=== PATIENT | female | born 1985 | race Caucasian/White ===

== ENCOUNTER 2016-09-14 12:46 | Emergency (ER) | payer OTHER ==
[2016-09-14 13:06] VITALS: BP 111/73; PULSE 66; TEMP 97.6
--- NOTE | 2016-09-14 13:15 | ED ---
General Adult HPI - General Chief complaint: ENT Stated complaint: ENT, cough Time Seen by Provider: 09/14/16 13:08 Source: patient, RN notes reviewed Mode of arrival: ambulatory Limitations: no limitations - History of Present Illness Initial comments: This is a 31-year-old female who presents with dry cough, congestion and sinus pressure 2 days. Patient states she has had these symptoms several times this year and her nephew has been sick with similar symptoms. Patient denies any known fevers, sore throat or otalgia. Patient admits to some congestion and mild headache from the sinus pressure. Patient denies any productive cough. Patient denies any chance of being .Patient denies any recent shortness breath, chest pain, abdominal pain, nausea/vomiting/diarrhea, back pain, numbness, tingling, hematuria, or any other complaints. - Related Data Previous Rx's Medication Instructions Recorded Benzonatate [Tessalon Perles] 100 mg PO TID 7 Days 09/14/16 Fluticasone Nasal [place] [Flonase 1 - 2 spray EA NOSTRIL DAILY #1 09/14/16 Nasal [place]] bottle Allergies Allergy/AdvReac Type Severity Reaction Status Date / Time No Known Allergies Allergy Verified 09/14/16 13:06 Review of Systems ROS Statement: Those systems with pertinent positive or pertinent negative responses have been documented in the HPI. ROS Other: All systems not noted in ROS Statement are negative. Past Medical History Past Medical History: Cancer, Renal Disease Additional Past Medical History / Comment(s): cervical/ kidney biopsy showed lupus but blood work did not History of Any Multi-Drug Resistant Organisms: None Reported Past Surgical History: Orthopedic Surgery, Tubal Ligation Additional Past Surgical History / Comment(s): due to needing cancer surgery Past Psychological History: Depression Smoking Status: Current every day smoker Past Alcohol Use History: Rare Past Drug Use History: None Reported General Exam - General Exam Comments Initial Comments: General: The patient is awake and alert, in no distress, and does not appear acutely ill. Eye: Pupils are equal, round and reactive to light, extra-ocular movements are intact. No nystagmus. There is normal conjunctiva bilaterally. No signs of icterus. Ears: TMs pink and pearly with intact cone of light bilaterally. Normal external ear canals Nose: Nasal turbinates erythematous and edematous with mild discomfort to palpation of the frontal and maxillary sinuses. Mouth and throat: There are moist mucous membranes and no oral lesions. Neck: The neck is supple, there is no tenderness or JVD. Cardiovascular: There is a regular rate and rhythm. No murmur, rub or gallop is appreciated. Respiratory: Lungs are clear to auscultation, respirations are non-labored, breath sounds are equal. No wheezes, stridor, rales, or rhonchi. Musculoskeletal: Normal ROM, no tenderness. Strength 5/5. Sensation intact. Radial pulses equal bilaterally 2+. Neurological: A&O x 3. CN II-XII intact, There are no obvious motor or sensory deficits. Coordination appears grossly intact. Speech is normal. Skin: Skin is warm and dry and no rashes or lesions are noted. Psychiatric: Cooperative, appropriate mood & affect, normal judgment. Limitations: no limitations Course Vital Signs 09/14/16 02 13:03 13:17 Temperature 97.6 F Pulse Rate 66 Respiratory 18 16 Rate Blood Pressure 111/73 O2 Sat by Pulse 99 Oximetry Medical Decision Making - Medical Decision Making This is a 31-year-old female presents with sinus congestion 2 days. On physical exam patient is afebrile in the EC. Nasal turbinates erythematous and edematous with mild discomfort to palpation of the frontal and maxillary sinuses. Chest x-ray is done and reviewed: No acute process. Reported by Dr. Felipe. Discussed results with patient. I discussed that most cases of sinusitis or viral. Discussed supportive care with [id number] decongestants, Claritin and nasal rinses/nasal sprays. Patient will be given a prescription for Flonase and Tessalon Perles. I discussed return parameters. Discussed Tylenol and Motrin as needed for any pain and fever symptoms. I discussed the patient should follow-up with her primary care physician in one to 2 days or return to the EC for any worsening symptoms or for any further concerns. Patient was receptive to this plan patient will be discharged home. Disposition Clinical Impression: Sinusitis Disposition: HOME SELF-CARE Condition: Good Instructions: Sinusitis (ED) Additional Instructions: Please use Claritin 10 mg, Sudafed OTC or other decongestant, saline nasal rinse such as netti-pot for symptoms. Please use a nasal spray 1-2 sprays in each nostril daily. Please use Tessalon Perles as prescribed. May use Tylenol and/or Motrin [id number] for fever and pain symptoms.Please use medication as discussed. Please follow-up with family doctor in the next 2 days of symptoms have not improved. Please return to emergency room if the symptoms increase or worsen or for any other concerns. Prescriptions: Benzonatate [Tessalon Perles] 100 mg PO TID 7 Days Fluticasone Nasal [place] [Flonase Nasal [place]] 1 - 2 spray EA NOSTRIL DAILY #1 bottle Referrals: Kd Linn MD [Primary Care Provider] - 1-2 days Time of Disposition: 13:47
[2016-09-14 13:18] VITALS: RESP 16
--- NOTE | 2016-09-14 13:47 | XR ---
EXAMINATION TYPE: XR chest 2V DATE OF EXAM: 09/14/2016 1:24 PM COMPARISON: 08/12/2014 TECHNIQUE: PA and lateral views submitted. HISTORY: Cough, sinus pressure FINDINGS: The lungs are clear and there is no pneumothorax, pleural effusion, or focal pneumonia. IMPRESSION: 1. No acute process.
== END 2016-09-14 13:55 | disposition home or self-care (01) ==
LOC: EC 12:46
DX: J32.9 Chronic sinusitis, unspecified (principal); F17.200 Nicotine dependence, unspecified, uncomplicated
CPT/HCPCS: 71020; 99283

== ENCOUNTER 2016-09-16 21:48 | Emergency (ER) | payer OTHER ==
[2016-09-16 22:03] VITALS: TEMP 97.2
[2016-09-16 23:55] VITALS: RESP 14
[2016-09-16] MEDS ORDERED: SODIUM CHLORIDE 0.9% 1,000 ML IV STA (23:58)
[2016-09-16] MEDS ORDERED: IPRATROPIUM-ALBUTEROL 3 ML NEB INHALATION STA (23:58)
[2016-09-16] MEDS ORDERED: methylPREDNISolone SOD SUCCI 125 MG/2 ML VIAL IV STA (23:59)
[2016-09-16] MEDS ORDERED: KETOROLAC 30 MG/ML 1 ML VIAL IVP STA (23:59)
--- NOTE | 2016-09-17 00:03 | ED ---
Chest Pain HPI - General Chief Complaint: Chest Pain Stated Complaint: Chest Pain Time Seen by Provider: 09/16/16 23:35 Source: patient, RN notes reviewed Mode of arrival: ambulatory Limitations: no limitations - History of Present Illness Initial Comments: This is a 31-year-old female who was seen here 2 days ago and diagnosed with upper respiratory infection placed on Flonase and cough medication is back today complaining of midsternal lower chest pain tight pressure-like that increases with movement and deep breathing. She does have a nonproductive cough she denies any fevers chills or sweats she is a smoker but has no history of bronchitis but she has been exposed bronchitis no history of asthma or COPD. No history of heart disease she states she's not getting any better from her medications. MD Complaint: chest pain, other - Related Data Previous Rx's Medication Instructions Recorded Benzonatate [Tessalon Perles] 100 mg PO TID 7 Days 09/14/16 Fluticasone Nasal [place] [Flonase 1 - 2 spray EA NOSTRIL DAILY #1 09/14/16 Nasal [place]] bottle Albuterol Inhaler [Ventolin Hfa 2 puff INHALATION Q6HR PRN #1 09/17/16 Inhaler] inhaler predniSONE 20 mg PO BID #10 tab 09/17/16 Allergies Allergy/AdvReac Type Severity Reaction Status Date / Time No Known Allergies Allergy Verified 09/16/16 22:03 Review of Systems ROS Statement: Those systems with pertinent positive or pertinent negative responses have been documented in the HPI. ROS Other: All systems not noted in ROS Statement are negative. EKG Findings - EKG Results: EKG: interpreted by DON WNL, sinus rhythm, normal axis, normal QRS, normal ST/ T, no acute changes (EKG shows normal sinus rhythm rate is 67 RI interval 140 QRS duration 84 QT/QTC of 384/405 this is normal. EKG.) Past Medical History Past Medical History: Cancer, Renal Disease Additional Past Medical History / Comment(s): cervical/ kidney biopsy showed lupus but blood work did not History of Any Multi-Drug Resistant Organisms: None Reported Past Surgical History: Orthopedic Surgery, Tubal Ligation Additional Past Surgical History / Comment(s): due to needing cancer surgery Past Psychological History: Depression Smoking Status: Current every day smoker Past Alcohol Use History: Rare Past Drug Use History: None Reported General Exam - General Exam Comments Initial Comments: This is a well-developed well-nourished awake alert oriented 3 female Limitations: no limitations General appearance: alert, in no apparent distress Head exam: Present: atraumatic, normocephalic, normal inspection Eye exam: Present: normal appearance, PERRL, EOMI. Absent: scleral icterus, conjunctival injection, periorbital swelling ENT exam: Present: normal exam, mucous membranes moist Neck exam: Present: normal inspection. Absent: tenderness, meningismus, lymphadenopathy Respiratory exam: Present: wheezes, chest wall tenderness (Tenderness over the xiphoid and lower midsternal costal sternal margin.), decreased breath sounds. Absent: respiratory distress, rales, rhonchi, stridor Cardiovascular Exam: Present: regular rate, normal rhythm, normal heart sounds. Absent: systolic murmur, diastolic murmur, rubs, gallop, clicks GI/Abdominal exam: Present: soft, normal bowel sounds. Absent: distended, tenderness, guarding, rebound, rigid Extremities exam: Present: normal inspection, full ROM, normal capillary refill. Absent: tenderness, pedal edema, joint swelling, calf tenderness Back exam: Present: normal inspection Neurological exam: Present: alert, oriented X3, CN II-XII intact Psychiatric exam: Present: normal affect, normal mood Skin exam: Present: warm, dry, intact, normal color. Absent: rash Course Vital Signs 09/16/16 09/16/16 09/17/16 22:01 23:55 00:28 Temperature 97.2 F L Pulse Rate 72 65 86 Respiratory 20 14 Rate Blood Pressure 126/71 O2 Sat by Pulse 98 96 Oximetry Chest Pain MDM - MDM Review the x-ray shows no acute findings. Patient is feeling much improved after the treatment. The presentation consistent with chest wall pain and bronchospasm. We did discuss smoking cessation for about 3.1 minutes. She is trying to cut back. She'll be discharged on appropriate medication Disposition Clinical Impression: Chest wall syndrome, Costalchondritis, Acute bronchospasm, Smoking Disposition: HOME SELF-CARE Condition: Good Instructions: Costochondritis (ED), Chest Wall Pain (ED), Bronchospasm (ED), How to Stop Smoking (ED) Prescriptions: Albuterol Inhaler [Ventolin Hfa Inhaler] 2 puff INHALATION Q6HR PRN #1 inhaler PRN Reason: Dyspnea predniSONE 20 mg PO BID #10 tab
[2016-09-17 00:04] LABS: Basophils # (A) 0.1 k/uL (0-0.2); Basophils % (A) 1 %; CH 32.6; CHCM 34.2; Eosinophils # (A) 0.4 k/uL (0-0.7); Eosinophils % (A) 3 %; HCT 41.7 % (34.0-46.0); HDW 2.31; Luc # (Auto) 0.31; Luc % (Auto) 3; Lymphocytes # (A) 2.2 k/uL (1.0-4.8); Lymphocytes % (A) 18 %; MCH 32.1 pg (25.0-35.0); MCHC 33.5 g/dL (31.0-37.0); MCV 95.7 fL (80.0-100.0); Monocytes # (A) 0.6 k/uL (0-1.0); Monocytes % (A) 5 %; Neutrophils # (A) 8.5 k/uL (1.3-7.7); Neutrophils % (A) 71 %; RBC 4.36 m/uL (3.80-5.40); RDW 11.9 % (11.5-15.5); WBC 12.1 k/uL (3.8-10.6)
[2016-09-17 00:15] LABS: ALT 32 U/L (9-52); AST 53 U/L (14-36); Alkaline Phosphatase 66 U/L (38-126); Anion Gap 15 mmol/L; Blood Urea Nitrogen 12 mg/dL (7-17); Calcium 9.7 mg/dL (8.4-10.2); Carbon Dioxide 22 mmol/L (22-30); Chloride 104 mmol/L (98-107); Glucose 93 mg/dL (74-99); Magnesium 1.9 mg/dL (1.6-2.3); Non-African American GFR(MDRD) >60 (>60 ml/min/1.73 sqM); Potassium 3.6 mmol/L (3.5-5.1); Sodium 141 mmol/L (137-145); Total Protein 7.9 g/dL (6.3-8.2)
[2016-09-17 00:18] LABS: Creatine Kinase 126 U/L (30-135)
[2016-09-17 00:31] LABS: Creatine Kinase MB 0.4 ng/mL (0.0-2.4); Troponin I <0.012 ng/mL (0.000-0.034)
[2016-09-17 01:25] VITALS: BP 120/70; PULSE 62
--- NOTE | 2016-09-17 01:44 | XR ---
EXAMINATION TYPE: XR chest 2V DATE OF EXAM: 09/17/2016 12:59 AM COMPARISON: 09/14/2016 HISTORY: Chest pain TECHNIQUE: Frontal and lateral views of the chest are obtained. FINDINGS: There is no focal air space opacity, pleural effusion, or pneumothorax seen. The cardiac silhouette size is within normal limits. Chronic lung changes are suggested. The osseous structures are intact. IMPRESSION: No acute cardiopulmonary process. No significant change.
== END 2016-09-17 01:24 | disposition home or self-care (01) ==
LOC: EC 21:48
DX: J98.01 Acute bronchospasm (principal); M94.0 Chondrocostal junction syndrome [Tietze]; F17.200 Nicotine dependence, unspecified, uncomplicated; Z79.899 Other long term (current) drug therapy; Z79.51 Long term (current) use of inhaled steroids
CPT/HCPCS: 99285; 96374; 96375; 96361; 94640; 36415; 93005; 80053; 82550; 82553; 83735; 84484; 85025; 71020; J2930; J1885

== ENCOUNTER → 2018-03-04 | Outpatient (CLI) | payer OTHER ==
--- NOTE | 2018-03-04 16:51 | US ---
EXAMINATION TYPE: US pelvic complete DATE OF EXAM: 03/04/2018 COMPARISON: NONE CLINICAL HISTORY: N92.0 menorrhagia,N85.2 bulky uterus. TECHNIQUE: Transabdominal (TA). Date of LMP: 02/21/18 EXAM MEASUREMENTS: Uterus: 7.7 x 3.8 x 5.4 cm Endometrial Stripe: 0.5 cm Right Ovary: 3.2 x 2.8 x 2.4 cm Left Ovary: 2.6 x 1.4 x 2.6 cm 1. Uterus: Anteverted wnl 2. Endometrium: wnl 3. Right Ovary: dominant follicle noted, wnl 4. Left Ovary: wnl 5. Bilateral Adnexa: wnl 6. Posterior cul-de-sac: wnl IMPRESSION: Normal transabdominal pelvic sonogram.
== END | disposition home or self-care (01) ==
LOC: RADUSWWP 16:22
PROVIDERS: ATTEND Family Medicine
DX: N92.0 Excessive and frequent menstruation with regular cycle (principal); Z88.8 Allergy status to other drugs, medicaments and biological substances
CPT/HCPCS: 76856

== ENCOUNTER 2018-05-19 18:29 | Emergency (ER) | payer OTHER ==
[2018-05-19 18:35] VITALS: BP 120/73; PULSE 63; RESP 20; TEMP 97.8
--- NOTE | 2018-05-19 18:58 | ED ---
Neck Injury/Pain HPI - General Chief Complaint: Neck Pain/Injury Stated Complaint: neck pain Time Seen by Provider: 05/19/18 18:38 Source: patient, RN notes reviewed Mode of arrival: ambulatory Limitations: no limitations - History of Present Illness Initial Comments: 32-year-old female presents emergency Department chief complaint right-sided neck pain. Patient states that extends from the right basilar skull also right shoulder mid back. Patient states it hurts with movement better at rest. Patient states stretches and ibuprofen have helped. She states she woke up the symptoms denies any trauma no fever no chills denies any chest pain shortness of breath no fever no chills. - Related Data Previous Rx's Medication Instructions Recorded Benzonatate [Tessalon Perles] 100 mg PO TID 7 Days capsule 09/14/16 Fluticasone Nasal [place] [Flonase 1 - 2 spray EA NOSTRIL DAILY #1 09/14/16 Nasal [place]] bottle Albuterol Inhaler [Ventolin Hfa 2 puff INHALATION Q6HR PRN #1 09/17/16 Inhaler] inhaler predniSONE 20 mg PO BID #10 tab 09/17/16 Cyclobenzaprine [Flexeril] 10 mg PO TID PRN #15 tab 05/19/18 Ibuprofen [Motrin] 600 mg PO Q8HR PRN #30 tab 05/19/18 Allergies Allergy/AdvReac Type Severity Reaction Status Date / Time No Known Allergies Allergy Verified 05/19/18 18:35 Review of Systems ROS Statement: Those systems with pertinent positive or pertinent negative responses have been documented in the HPI. ROS Other: All systems not noted in ROS Statement are negative. Past Medical History Past Medical History: Cancer, Renal Disease Additional Past Medical History / Comment(s): cervical/ kidney biopsy showed lupus but blood work did not History of Any Multi-Drug Resistant Organisms: None Reported Past Surgical History: Orthopedic Surgery, Tubal Ligation Additional Past Surgical History / Comment(s): due to needing cancer surgery Past Psychological History: Depression Smoking Status: Current every day smoker Past Alcohol Use History: Rare Past Drug Use History: None Reported General Exam Limitations: no limitations General appearance: alert, in no apparent distress Head exam: Present: atraumatic, normocephalic, normal inspection Eye exam: Present: normal appearance, PERRL, EOMI. Absent: scleral icterus, conjunctival injection, periorbital swelling ENT exam: Present: normal exam, normal oropharynx, mucous membranes moist, TM's normal bilaterally Neck exam: Present: normal inspection, tenderness (Tenderness the right trapezius region), full ROM. Absent: meningismus, lymphadenopathy Respiratory exam: Present: normal lung sounds bilaterally. Absent: respiratory distress, wheezes, rales, rhonchi, stridor Cardiovascular Exam: Present: regular rate, normal rhythm, normal heart sounds. Absent: systolic murmur, diastolic murmur, rubs, gallop, clicks Extremities exam: Present: other (Upper extremity strength equal bilaterally neurovascular intact) Course Vital Signs 05/19/18 18:34 Temperature 97.8 F Pulse Rate 63 Respiratory 20 Rate Blood Pressure 120/73 O2 Sat by Pulse 98 Oximetry Medical Decision Making - Medical Decision Making 32-year-old female presented for right-sided neck pain. Patient has classic right trapezius muscle spasm right trapezius muscle strain. Patient will be given Flexeril and ibuprofen. We discussed stretching and warm compresses. Disposition Clinical Impression: Strain of neck muscle, Trapezius muscle spasm Disposition: HOME SELF-CARE Condition: Stable Instructions: Cervical Strain (ED) Additional Instructions: Please return to the Emergency Department if symptoms worsen or any other concerns. Prescriptions: Cyclobenzaprine [Flexeril] 10 mg PO TID PRN #15 tab PRN Reason: Muscle Spasm Ibuprofen [Motrin] 600 mg PO Q8HR PRN #30 tab PRN Reason: Pain Is patient prescribed a controlled substance at d/c from ED?: No Referrals: Kd Linn MD [Primary Care Provider] - 1-2 days Time of Disposition: 18:58
== END 2018-05-19 19:00 | disposition home or self-care (01) ==
LOC: EC 18:29
DX: S16.1XXA Strain of muscle, fascia and tendon at neck level, initial encounter (principal); S46.811A Strain of other muscles, fascia and tendons at shoulder and upper arm level, right arm, initial encounter; F17.200 Nicotine dependence, unspecified, uncomplicated; X58.XXXA Exposure to other specified factors, initial encounter
CPT/HCPCS: 99283

== ENCOUNTER 2018-05-24 13:41 | Emergency (ER) | payer OTHER ==
[2018-05-24 14:10] VITALS: BP 131/69; PULSE 58; RESP 16; TEMP 97.4
--- NOTE | 2018-05-24 14:37 | ED ---
Neck Injury/Pain HPI - General Chief Complaint: Neck Pain/Injury Stated Complaint: neck pain Time Seen by Provider: 05/24/18 14:03 Source: patient, RN notes reviewed Mode of arrival: ambulatory Limitations: no limitations - History of Present Illness Initial Comments: This is a 32-year-old female who presents to the emergency department with chief complaint of neck pain for 9 days. Patient states she was evaluated in the emergency department a few days ago and was diagnosed with a muscle strain. She was started on Flexeril and ibuprofen. Patient states that the Flexeril is making her sick so she has not been taking it. She states that the neck pain started when she woke up 9 days ago. She describes the pain as throbbing and pulsating. Today the pain started to radiate up the right side of her head. She states that she knows this is not a migraine. She states the pain in her neck is not positional. She states that the pain has improved but is still present. Denies any fevers or chills, chest pain or shortness of breath, abdominal pain. She does state she had 2 episodes of vomiting earlier today. States that she has not taken any medication to help with the headache. - Related Data Previous Rx's Medication Instructions Recorded Benzonatate [Tessalon Perles] 100 mg PO TID 7 Days capsule 09/14/16 Fluticasone Nasal [place] [Flonase 1 - 2 spray EA NOSTRIL DAILY #1 09/14/16 Nasal [place]] bottle Albuterol Inhaler [Ventolin Hfa 2 puff INHALATION Q6HR PRN #1 09/17/16 Inhaler] inhaler predniSONE 20 mg PO BID #10 tab 09/17/16 Cyclobenzaprine [Flexeril] 10 mg PO TID PRN #15 tab 05/19/18 Ibuprofen [Motrin] 600 mg PO Q8HR PRN #30 tab 05/19/18 Allergies Allergy/AdvReac Type Severity Reaction Status Date / Time No Known Allergies Allergy Verified 05/19/18 18:35 Review of Systems ROS Statement: Those systems with pertinent positive or pertinent negative responses have been documented in the HPI. ROS Other: All systems not noted in ROS Statement are negative. Past Medical History Past Medical History: Cancer, Renal Disease Additional Past Medical History / Comment(s): cervical/ kidney biopsy showed lupus but blood work did not History of Any Multi-Drug Resistant Organisms: None Reported Past Surgical History: Orthopedic Surgery, Tubal Ligation Additional Past Surgical History / Comment(s): due to needing cancer surgery Past Psychological History: Anxiety, Depression Smoking Status: Current every day smoker Past Alcohol Use History: Rare Past Drug Use History: None Reported General Exam - General Exam Comments Initial Comments: General: Awake and alert, well-developed; in no apparent distress. HEENT: Head atraumatic, normocephalic. Pupils are equal, round and reactive to light. Extraocular movements intact. Oropharynx moist without erythema or exudate. Neck: Supple. Normal ROM. No vertebral bony point tenderness or tenderness on palpation of the neck musculature. Cardiovascular: Regular rate and rhythm. No murmurs, rubs or gallops. Chest symmetrical. Respiratory: Lungs clear to auscultation bilaterally. No wheezes, rales or rhonchi. Normal respiratory effort with no use of accessory muscles. Musculoskeletal: Normal ROM, no tenderness, strength 5/5 bilateral upper and lower extremities. Ambulating normally. Skin: [place], warm and dry without rashes or lesions. Neurological: Alert and oriented x3. CN II-XII grossly intact. Speech is fluent and answers are appropriate. No focal neuro deficits. Psychiatric: Normal mood and affect. No overt signs of depression or anxiety noted. Limitations: no limitations Course Vital Signs 05/24/18 14:04 Temperature 97.4 F L Pulse Rate 58 L Respiratory 16 Rate Blood Pressure 131/69 O2 Sat by Pulse 96 Oximetry Medical Decision Making - Medical Decision Making This is a 32-year-old female who presents to the emergency department with chief complaint of neck pain. Patient reports right-sided neck pain for the past 9 days. She was being treated for a muscle strain. Patient states that today he neck pain now radiates up the right side of her neck and is throbbing and pulsating. She has not taken any medications today to help the pain. There are no focal neuro deficits on examination. Vital signs are stable. Patient has normal range of motion of the neck and there is no tenderness on palpation. Patient does request a computed tomography scan of the brain and C- spine. This was obtained which revealed no abnormalities. Findings were discussed with patient who then requested laboratory studies. I educated patient that laboratory studies will not give any further information regarding the neck pain or headache. This would be unnecessary testing. I did discuss this with attending physician Dr. Alexis who was in agreement. Patient became angry and was very unhappy with this and demanded to be given her discharge paperwork. Patient is instructed to follow-up with her primary care provider. Patient is in no acute distress. - Radiology Data Radiology results: report reviewed CT brain and C-spine without contrast impression: No acute intracranial abnormality is seen. No acute fracture or malalignment of the cervical spine. Disposition Clinical Impression: Headache Disposition: HOME SELF-CARE Condition: Good Instructions: Tension Headache (ED), General Headache (ED) Additional Instructions: Please follow up with primary care provider within 1-2 days. Return to emergency department if symptoms should worsen or any concerns arise. Is patient prescribed a controlled substance at d/c from ED?: No Referrals: Kd Linn MD [Primary Care Provider] - 1-2 days Time of Disposition: 15:12
--- NOTE | 2018-05-24 14:53 | CT ---
EXAMINATION TYPE: CT brain tiesha wo con DATE OF EXAM: 05/24/2018 COMPARISON: 03/15/2011 HISTORY: 32-year-old female Headache and neck pain. CT DLP: 868.8 mGycm Automated exposure control for dose reduction was used. Technique: Examination of the head was done in axial plane without intravenous contrast. Coronal and sagittal reconstructions performed. CT of the cervical spine was obtained in axial plane without intravenous injection of contrast mater ial. Coronal and sagittal reformatted images were obtained from the axial views for evaluation of f ractures, spinal alignment and canal. FINDINGS: Head: There is no evidence of acute intracranial hemorrhage, acute ischemic changes, mass, mass-effect, or extra-axial fluid collection. There is no effacement of cerebral sulci or basal subarachnoid cister ns. There is no hydrocephalus. There is no midline shift. Bah-white matter distinction is preserv ed. Paranasal sinuses and mastoid air cells are well pneumatized. Orbits and globes are intact. No calvar ial fracture. Cervical spine: Reversal of the normal cervical lordosis. The alignment of the cervical spine is normal on coronal an d reformatted images. There is no cranial vertebral abnormality. Fracture of the cervical spine is no t seen. There is no evidence of focal disk herniation that assessment of the spinal canal from C7 and below is limited due to artifact from the patient's shoulders. Sagittal and coronal reformatted images confirm above findings. COMBINED IMPRESSION: 1. No acute intracranial abnormality seen. 2. No acute fracture or malalignment of the cervical spine.
== END 2018-05-24 15:15 | disposition home or self-care (01) ==
LOC: EC 13:41
DX: R51 Headache (principal); M54.2 Cervicalgia; F17.200 Nicotine dependence, unspecified, uncomplicated
CPT/HCPCS: 70450; 72125; 99284

== ENCOUNTER → 2018-06-02 | Outpatient (CLI) | payer OTHER ==
[2018-06-02 13:33] LABS: Basophils # (A) 0.1 k/uL (0-0.2); Basophils % (A) 1 %; Eosinophils # (A) 0.4 k/uL (0-0.7); Eosinophils % (A) 5 %; HGB 12.9 gm/dL (11.4-16.0); Lymphocytes # (A) 2.3 k/uL (1.0-4.8); Lymphocytes % (A) 32 %; MCH 31.6 pg (25.0-35.0); MCHC 32.2 g/dL (31.0-37.0); MCV 98.2 fL (80.0-100.0); Monocytes # (A) 0.3 k/uL (0-1.0); Monocytes % (A) 4 %; Neutrophils % (A) 56 %; Platelet Count 196 k/uL (150-450); RBC 4.07 m/uL (3.80-5.40); RDW 11.7 % (11.5-15.5); WBC 7.1 k/uL (3.8-10.6)
[2018-06-02 13:45] LABS: Anion Gap 6 mmol/L; Blood Urea Nitrogen 10 mg/dL (7-17); Calcium 9.2 mg/dL (8.4-10.2); Carbon Dioxide 27 mmol/L (22-30); Chloride 105 mmol/L (98-107); Glucose 89 mg/dL (74-99); Potassium 4.6 mmol/L (3.5-5.1); Sodium 138 mmol/L (137-145)
== END ==
LOC: LABPAT 12:16
PROVIDERS: ATTEND Obstetrics & Gynecology
DX: Z01.818 Encounter for other preprocedural examination (principal)
CPT/HCPCS: 36415; 80048; 85025

== ENCOUNTER 2018-06-09 05:58 | Day surgery (SDC) | payer OTHER ==
[2018-06-03 14:58] VITALS: BMI 23.9
--- NOTE | 2018-06-07 17:18 | P.HPOB ---
History of Present Illness H&P Date: 06/07/18 Chief Complaint: Menorrhagia Stacey is a 32-year-old female with heavy vaginal bleeding. Bleeding is characterized as very heavy with significant pain and cramping. She also notes that is becoming more irregular and has worsened over the last year and a half. She relates that she has plum size clots and she can often go through a tampon every 10-20 minutes doing her worst bleeding. She is unable to function at work and often has to leave work or stay home. Options were discussed with patient including conservative measures like oral contraceptives or D&C with NovaSure but she relates that she is dubious as to whether not these will work for her as she is seeing people to fully gotten about a year of relief from these. Risks/benefits/alternatives to a robotic-assisted laparoscopic hysterectomy reviewed with the patient in detail and all questions were answered for her prior to proceeding to the operating room. Risks did include but were not limited to bleeding and infection, damage to the nerves/vessels/ bladder/bowel/ureters uterine potentially . She and I did have a long discussion on the possibility of doing a NovaSure procedure, however with her significant dysmenorrhea it is most likely that she will have potentially worsening of the symptoms and rather than take that risk we'll proceed with a hysterectomy. She is scheduled for a robotic-assisted laps up hysterectomy possible STEPHIE and possible BSO. Past Medical History Past Medical History: Cancer, Musculoskeletal Disorder, Renal Disease, Skin Disorder Additional Past Medical History / Comment(s): HX KIDNEY PROB, cervical/ kidney biopsy REVEALED LUPUS. CERVICAL CA 2008. DISLOCATED LT KNEE X2. MINOR PSORIASIS OCC. PAINFUL MENSES, LARGE CLOTS. History of Any Multi-Drug Resistant Organisms: None Reported Past Surgical History: Orthopedic Surgery, Tubal Ligation Additional Past Surgical History / Comment(s): FINGER REATTACHED RT HAND CHILD. D&C, due to needing cancer surgery; HAD CONE BIOPSY. COLONOSCOPY, EGD. Past Anesthesia/Blood Transfusion Reactions: No Reported Reaction Smoking Status: Current every day smoker - Past Family History Mother Family Medical History: No Reported History Medications and Allergies Home Medications Medication Instructions Recorded Confirmed Type Ibuprofen [Motrin] 200 - 600 mg PO Q8HR PRN 06/03/18 06/03/18 History Allergies Allergy/AdvReac Type Severity Reaction Status Date / Time bupropion [From Wellbutrin] AdvReac Hallucinati Verified 06/03/18 14:32 ons escitalopram [From Lexapro] AdvReac Hallucinati Verified 06/03/18 14:32 ons paroxetine [From Paxil] AdvReac Hallucinati Verified 06/03/18 14:32 ons sertraline [From Zoloft] AdvReac Hallucinati Verified 06/03/18 14:32 ons Exam Osteopathic Statement: *. No significant issues noted on an osteopathic structural exam other than those noted in the History and Physical/Consult. - OBG Physical Exam Breast: both: normal (no masses) Abdomen: bowel sounds normal, no diffuse tenderness, no bruit present, no guarding noted, no hepatomegaly, no splenomegaly, no mass Vulva: both: normal Vagina: normal moisture, no discharge Cervix: no lesion, no discharge Uterus: normal size, normal contour Adnexa: both: normal Anus/Rectum: normal perianal skin, no rectal mass, no hemorrhoids, heme negative
[~2018-06-09 05:58] MED LIST: DEXAMETHASONE SOD PHOSPHATE 10 MG/ML 1 ML VIAL IV ONE; HYDROmorphone 0.5 MG/0.5 ML SYRINGE IVP PRN; MIDAZOLAM 2 MG/2 ML VIAL IV PRN; ONDANSETRON 4 MG/2 ML VIAL IVP ONE; SCOPOLAMINE 1.5MG/72HR PATCH TRANSDERM ONE; ceFAZolin IN SWFI 2 GM/20 ML SYRINGE IVP ONE
[2018-06-09] MEDS: LIDOCAINE 1% 20 ML VIAL (10MG/ML) FOR IV START INTRADERMA PRN ×2 (06:42→06:51)
[2018-06-09] MEDS: LACTATED RINGERS 1,000 ML IV SCH ×4 (06:42→10:48)
[2018-06-09] MEDS ORDERED: BUPIVACAINE (PF) 0.25% 30 ML VIAL SQ ONE (07:26)
[2018-06-09] MEDS ORDERED: NEOSTIGMINE 1 MG/ML 10 ML VIAL ONE (07:43)
[2018-06-09] MEDS ORDERED: MIDAZOLAM 2 MG/2 ML VIAL ONE (07:43)
[2018-06-09] MEDS ORDERED: HYDROmorphone (PF) 1 MG/ML ONE (07:43)
[2018-06-09] MEDS ORDERED: fentaNYL (PF) 50 MCG/ML 2 ML AMP ONE (07:43)
[2018-06-09] MEDS ORDERED: PROPOFOL 10 MG/ML 20 ML VIAL IV ONE (07:43)
[2018-06-09] MEDS ORDERED: LIDOCAINE 1% INJ 10MG/ML (20 ML MDV) ONE (07:43)
[2018-06-09] MEDS ORDERED: GLYCOPYRROLATE 0.2 MG/ML 2 ML VIAL ONE (07:43)
[2018-06-09] MEDS ORDERED: ROCURONIUM BROMIDE 10 MG/ML 10 ML VIAL IV ONE (07:43)
[2018-06-09] MEDS ORDERED: KETOROLAC 30 MG/ML 1 ML VIAL ONE (07:43)
[2018-06-09] MEDS ORDERED: KETOROLAC 30 MG/ML 1 ML VIAL IVP PRN (09:03)
[2018-06-09] MEDS ORDERED: ONDANSETRON 4 MG/2 ML VIAL IVP PRN (09:03)
[2018-06-09] MEDS ORDERED: SIMETHICONE 80 MG CHEWABLE PO PRN (09:03)
[2018-06-09] MEDS ORDERED: Acetaminophen-Codeine 300-30mg TAB PO PRN (09:03)
--- NOTE | 2018-06-09 09:10 | P.OP ---
Date of Procedure: 06/09/18 Preoperative Diagnosis: Menorrhagia and pelvic pain Postoperative Diagnosis: Same with left hydrosalpinx Procedure(s) Performed: Robotic-assisted laparoscopic hysterectomy with essentially bilateral salpingectomy Anesthesia: EMBER Surgeon: Melo Rivera Child Support Investigator #1: Alysia Lozoya Estimated Blood Loss (ml): 20 IV fluids (ml): 500 Urine output (ml): 100 Pathology: other (Uterus cervix and fallopian tubes) Condition: stable Disposition: floor Operative Findings: Left hydrosalpinx Description of Procedure: Patient was taken to the operating suite where a general anesthetic was found be adequate. She was prepped and draped in normal sterile fashion and placed in dorsal lithotomy position. Initially a weighted speculum was inserted into the vagina and the anterior lip of the cervix was identified and grasped with a single-tooth tenaculum. Cervix was then dilated and sounded to 8 cm. Cynthia manipulator was then inserted without difficulty with stitches placed at 3 and 9. 3 cm cup size was noted. Parada cath was then placed and the remainder of incidents removed from the vagina. Gloves were then changed and attention was turned to abdominal portion procedure where 2 mL of quarter percent Marcaine was injected periumbilically. Through this injected anesthetic a 5 mm skin incision was made and through this incision under direct visualization with an optical trocar and sleeve the camera was inserted. Once peritoneal placement was assured gas was left fully slick abdomen and patient was placed in 25 Trendelenburg. Once this was accomplished 2 lateral ports were placed just inferior to the umbilicus 10 cm lateral to the umbilicus on both the right and left sides these were 8 mm skin incisions. Through these incisions robotic ports were placed. Once these were placed a fourth port and sleeve was inserted through a 1 cm incision between the left lateral and the medial port. Medial port was exchanged for a robotic camera port and the robot was brought in and docked. Once fully docked a Metzenbaums placed in the one arm and a Maryland grasper in the 2 arm and at this point I broke scrub and went to the console. Uterus was then elevated and observations pelvis were noted. Initially the uterus was tipped to the right-hand side and the left fallopian tube and hydrosalpinx were elevated and using Maryland to cauterize the tissue and scissor to cut it the hydrosalpinx was dissected across the mesosalpinx. Cauterization and cutting of the utero-ovarian ligament was then done followed by cauterization and cutting of the round ligament. Once this was accomplished anterior posterior leafs of the broad ligament were skeletonized and dissected laterally. Left sided vasculature was then cauterized. Uterus was then tipped intrauterine posterior fashion and undermining the bladder was done. Metzenbaum scissor undermining the tissue and scissor was used to incise across face of the uterus to create a bladder flap. Once this was fully developed similar dissection was performed to the right-hand side to free up this side and cauterization of vascular during the right side was done. Once this was accomplished retroversion of the uterus was done and the uterus was pushed in Parada, then anterior colpotomy was made. Anterior colpotomy was initially followed counterclockwise to approximately 9:00 once this was accomplished while cheating head when necessary to maintain excellent hemostasis we switched and went clockwise all the way around from approximately 2:00 to 9:00 to fully separate the uterus and cervix from the vagina. Uterus was then brought into the vagina to maintain pneumoperitoneum. Pedicles were verified for hemostasis. Once hemostasis was verified pelvis was irrigated. Once this was accomplished incidents were exchanged for a make suture cut and a cardia grasper and the vaginal cuff was closed with 20V lock suture in a running fashion. Once this was accomplished pelvis was again irrigated no bleeding is noted from any of the pedicles therefore incidents removed and gas was allowed to expel from the abdomen. 5 deep breaths were provided during this process. Dr. Lozoya and close the incisions with 4-0 Vicryl subcuticularly and the remaining 8 mL of quarter percent Marcaine was injected around these incisions. At this point I did do a cystoscopy and excellent flow was noted from both ureteral jets. All incidents were then removed. Sponge, lap, needle counts were all correct 2. Patient was then taken to the recovery room in stable and satisfactory condition.
[2018-06-09 11:44] VITALS: RESP 18
[2018-06-09] MEDS: Acetaminophen-Codeine 300-30mg TAB PO PRN (12:37)
[2018-06-09] MEDS: SENNOSIDES-DOCUSATE SODIUM 1 EACH TAB PO SCH (23:15)
[2018-06-10 00:03] VITALS: BP 116/77; PULSE 63; TEMP 98.2
[2018-06-10 07:34] LABS: Basophils % (A) 0 %; Eosinophils # (A) 0.1 k/uL (0-0.7); Eosinophils % (A) 1 %; HGB 11.5 gm/dL (11.4-16.0); Lymphocytes # (A) 2.4 k/uL (1.0-4.8); Lymphocytes % (A) 21 %; MCH 31.6 pg (25.0-35.0); MCHC 32.8 g/dL (31.0-37.0); MCV 96.4 fL (80.0-100.0); Mean Platelet Volume 8.6; Monocytes # (A) 0.5 k/uL (0-1.0); Monocytes % (A) 4 %; Neutrophils % (A) 72 %; Platelet Count 140 k/uL (150-450); RBC 3.63 m/uL (3.80-5.40); RDW 11.9 % (11.5-15.5); WBC 11.1 k/uL (3.8-10.6)
[2018-06-10] MEDS: SENNOSIDES-DOCUSATE SODIUM 1 EACH TAB PO SCH (08:29)
[2018-06-10] MEDS: Acetaminophen-Codeine 300-30mg TAB PO PRN (08:30)
--- NOTE | 2018-06-10 08:50 | P.DS ---
Providers Expected date of discharge: 06/10/18 Attending physician: Melo Rivera Primary care physician: Kd Waltershven [facility] Course: Patient is doing very well post op day 1. She is ambulating, voiding and she is tolerating her diet. She is passed flatus. We'll plan discharged home today. Vital signs are stable and afebrile. Heart regular, lungs clear, extremities are without pain. Abdomen is soft positive bowel sounds are noted and her incisions are clean dry and intact. Prescription for Motrin and Freedom has been sent to the pharmacy. Assessment postop day 1. Plan discharged home follow up with me in 10 days. Discharge instructions were thoroughly reviewed and all questions were answered for her prior to her discharge. Patient Condition at Discharge: Good Plan - Discharge Summary Discharge Rx Participant: Yes New Discharge Prescriptions: New HYDROcodone/APAP 5-325MG [Freedom 5-325] 1 tab PO Q4HR PRN #30 tab PRN Reason: Pain Ibuprofen [Motrin] 600 mg PO Q6HR PRN #30 tab PRN Reason: Pain No Action Ibuprofen [Motrin] 200 - 600 mg PO Q8HR PRN PRN Reason: Pain Discharge Medication List Ibuprofen [Motrin] 200 - 600 mg PO Q8HR PRN 06/03/18 [History] HYDROcodone/APAP 5-325MG [Freedom 5-325] 1 tab PO Q4HR PRN #30 tab 06/10/18 [Rx] Ibuprofen [Motrin] 600 mg PO Q6HR PRN #30 tab 06/10/18 [Rx] Follow up Appointment(s)/Referral(s): Melo Rivera DO [Doctor of Osteopathic Medicine] - 10 Days Activity/Diet/Wound Care/Special Instructions: Pelvic rest, no heavy lifting, limit stairs and driving. If any high temperatures, heavy bleeding or severe pain call my office Discharge Disposition: HOME SELF-CARE
== END 2018-06-10 18:30 | disposition home or self-care (01) ==
LOC: OR 05:58 → 4FBP 09:07 → OR 06-10 18:30
PROVIDERS: ATTEND Obstetrics & Gynecology
DX: N70.11 Chronic salpingitis (principal); N72 Inflammatory disease of cervix uteri; N94.6 Dysmenorrhea, unspecified; N92.1 Excessive and frequent menstruation with irregular cycle; M32.9 Systemic lupus erythematosus, unspecified; L40.9 Psoriasis, unspecified; Z98.51 Tubal ligation status; F17.200 Nicotine dependence, unspecified, uncomplicated; Z85.41 Personal history of malignant neoplasm of cervix uteri; Z88.8 Allergy status to other drugs, medicaments and biological substances
CPT/HCPCS: 81025; 86900; 86901; 85025; 86850; 88307; 58571; J2250; J1100; J2710; J2405; J2001; J3010; J1885; J1170; J2704; J0690

== ENCOUNTER 2021-05-30 17:35 | Emergency (ER) | payer OTHER ==
[2021-05-30 17:44] VITALS: RESP 18
[2021-05-30] MEDS ORDERED: diphenhydrAMINE 50 MG CAP PO STA (18:02)
[2021-05-30] MEDS ORDERED: FAMOTIDINE 20 MG TAB PO STA (18:02)
[2021-05-30] MEDS ORDERED: predniSONE 50 MG TAB PO STA (18:03)
--- NOTE | 2021-05-30 18:05 | ED ---
General Adult HPI - General Chief complaint: Allergic Reaction Stated complaint: Allergic reaction Time Seen by Provider: 05/30/21 17:55 Source: patient, family, RN notes reviewed Mode of arrival: ambulatory Limitations: no limitations - History of Present Illness Initial comments: Patient is a pleasant 35-year-old female presenting to the emergency department following a bee sting. Incident occurred just 20 minutes prior to arrival. Patient states she felt anxious and short of breath and vomited. Patient states this has resolved and she feels better now. Patient states she may have some questionable minimal difficulty breathing still. Patient does have some swelling and redness to her right clavicular region. No history of similar problems previously. There is a family history of problems with bee stings however. No swelling of the lips or tongue or throat. - Related Data Home Medications Medication Instructions Recorded Confirmed diphenhydrAMINE [Benadryl] 25 mg PO ONCE PRN 05/30/21 05/30/21 Previous Rx's Medication Instructions Recorded predniSONE [Deltasone] 20 mg PO BID #10 tab 05/30/21 Allergies Allergy/AdvReac Type Severity Reaction Status Date / Time bupropion [From Wellbutrin] AdvReac Hallucinati Verified 05/30/21 18:32 ons escitalopram [From Lexapro] AdvReac Hallucinati Verified 05/30/21 18:32 ons paroxetine [From Paxil] AdvReac Hallucinati Verified 05/30/21 18:32 ons sertraline [From Zoloft] AdvReac Hallucinati Verified 05/30/21 18:32 ons Review of Systems ROS Statement: Those systems with pertinent positive or pertinent negative responses have been documented in the HPI. ROS Other: All systems not noted in ROS Statement are negative. Constitutional: Denies: fever Eyes: Denies: eye pain ENT: Denies: ear pain Respiratory: Reports: as per HPI Cardiovascular: Denies: chest pain Endocrine: Denies: fatigue Gastrointestinal: Denies: abdominal pain Genitourinary: Denies: dysuria Musculoskeletal: Denies: back pain Skin: Reports: as per HPI Neurological: Denies: weakness Past Medical History Past Medical History: Cancer, Musculoskeletal Disorder, Renal Disease, Skin Disorder Additional Past Medical History / Comment(s): HX KIDNEY PROB, cervical/ kidney biopsy REVEALED LUPUS. CERVICAL CA 2007. DISLOCATED LT KNEE X2. MINOR PSORIASIS OCC. PAINFUL MENSES, LARGE CLOTS. History of Any Multi-Drug Resistant Organisms: None Reported Past Surgical History: Orthopedic Surgery, Tubal Ligation Additional Past Surgical History / Comment(s): FINGER REATTACHED RT HAND CHILD. D&C, due to needing cancer surgery; HAD CONE BIOPSY. COLONOSCOPY, EGD. Past Anesthesia/Blood Transfusion Reactions: No Reported Reaction Past Psychological History: Anxiety, Depression Smoking Status: Current every day smoker Past Alcohol Use History: Rare Past Drug Use History: Marijuana - Past Family History Mother Family Medical History: No Reported History General Exam Limitations: no limitations General appearance: alert, in no apparent distress Head exam: Present: normocephalic Eye exam: Present: normal appearance ENT exam: Present: normal oropharynx, other (No signs of angioedema of the lips or tongue or throat.) Neck exam: Present: normal inspection Respiratory exam: Present: normal lung sounds bilaterally. Absent: respiratory distress, wheezes Cardiovascular Exam: Present: regular rate, normal rhythm GI/Abdominal exam: Present: soft. Absent: tenderness Neurological exam: Present: alert Psychiatric exam: Present: normal affect, normal mood Skin exam: Present: normal color Course Vital Signs 05/30/21 17:39 Temperature 96.0 F L Pulse Rate 69 Respiratory 18 Rate Blood Pressure 94/54 O2 Sat by Pulse 93 L Oximetry Medical Decision Making - Medical Decision Making Patient reevaluated and resting comfortably in bed. Patient is essentially symptom-free for feeling drowsy. Patient updated Disposition Clinical Impression: Hymenoptera sting Disposition: HOME SELF-CARE Condition: Stable Instructions (If sedation given, give patient instructions): Insect Bite or Sting (ED) Additional Instructions: Prescriptions have been sent to pharmacy. Please do follow-up to primary care physician in the next couple days for recheck. Please continue [id number] Benadryl for the next 5 days. Return for difficulty breathing, swelling, weakness, worsening or changing symptoms or other concerns. Prescriptions: predniSONE [Deltasone] 20 mg PO BID #10 tab Is patient prescribed a controlled substance at d/c from ED?: No Referrals: Kd Linn MD [Primary Care Provider] - 1-2 days Time of Disposition: 18:59
[2021-05-30 19:19] VITALS: BP 93/54; PULSE 65; TEMP 97.2
== END 2021-05-30 19:08 | disposition home or self-care (01) ==
LOC: EC 17:35
DX: R11.10 Vomiting, unspecified (principal); R06.02 Shortness of breath; T63.461A Toxic effect of venom of wasps, accidental (unintentional), initial encounter; F17.200 Nicotine dependence, unspecified, uncomplicated; Z88.8 Allergy status to other drugs, medicaments and biological substances
CPT/HCPCS: 99283; J7512

== ENCOUNTER 2022-12-18 15:04 | Emergency (ER) | payer OTHER ==
[2022-12-18] MEDS ORDERED: HYDROmorphone 1 MG/ML 1 ML SYRINGE IM STA (15:24)
[2022-12-18] MEDS ORDERED: IBUPROFEN 600 MG TAB PO STA (15:32)
--- NOTE | 2022-12-18 15:38 | ED ---
Lower Extremity Injury HPI - General Chief Complaint: Extremity Injury, Lower Stated Complaint: dislocated L knee leg numbness Time Seen by Provider: 12/18/22 15:11 Source: patient, RN notes reviewed Mode of arrival: ambulatory Limitations: no limitations - History of Present Illness Initial Comments: This is a 37-year-old female who presents to the emergency department for left knee pain. States that she was stepping backwards out of her truck earlier today and she dislocated her knee. States that she frequently dislocates her knee and this feels the same. However, she is usually able to put it back in on her own, which was not the case this time. States that she had a severe knee dislocation years ago, and since then has had problems with recurrent dislocations. She was told by orthopedics that this would be the case. Since the injury today, she has not been able to put any pressure on the knee. Denies sustaining any other injuries. Denies any fevers, chills, sore throat, cough, dyspnea, chest pain, palpitations, abdominal pain, nausea, vomiting, diarrhea, back pain, or headaches. MD Complaint: knee injury Injury: Knee: Left - Related Data Home Medications Medication Instructions Recorded Confirmed No Known Home Medications 12/18/22 12/18/22 Allergies Allergy/AdvReac Type Severity Reaction Status Date / Time bupropion [From Wellbutrin] AdvReac Hallucinati Verified 12/18/22 15:40 ons escitalopram [From Lexapro] AdvReac Hallucinati Verified 12/18/22 15:40 ons paroxetine [From Paxil] AdvReac Hallucinati Verified 12/18/22 15:40 ons sertraline [From Zoloft] AdvReac Hallucinati Verified 12/18/22 15:40 ons Review of Systems ROS Statement: Those systems with pertinent positive or pertinent negative responses have been documented in the HPI. ROS Other: All systems not noted in ROS Statement are negative. Past Medical History Past Medical History: Cancer, Musculoskeletal Disorder, Renal Disease, Skin Disorder Additional Past Medical History / Comment(s): HX KIDNEY PROB, cervical/ kidney biopsy REVEALED LUPUS. CERVICAL CA 2008. DISLOCATED LT KNEE X3. MINOR PSORIASIS OCC. PAINFUL MENSES, LARGE CLOTS. History of Any Multi-Drug Resistant Organisms: None Reported Past Surgical History: Orthopedic Surgery, Tubal Ligation Additional Past Surgical History / Comment(s): FINGER REATTACHED RT HAND CHILD. D&C, due to needing cancer surgery; HAD CONE BIOPSY. COLONOSCOPY, EGD. Past Anesthesia/Blood Transfusion Reactions: No Reported Reaction Past Psychological History: Anxiety, Depression Smoking Status: Current every day smoker Past Alcohol Use History: Rare Past Drug Use History: Marijuana - Past Family History Mother Family Medical History: No Reported History General Exam Limitations: no limitations General appearance: alert, in distress Head exam: Present: atraumatic, normocephalic, normal inspection Respiratory exam: Present: normal lung sounds bilaterally. Absent: respiratory distress, wheezes, rales, rhonchi, stridor Cardiovascular Exam: Present: regular rate, normal rhythm, normal heart sounds. Absent: systolic murmur, diastolic murmur, rubs, gallop, clicks Extremities exam: Present: other (No overlying deformities, swelling, or dimpling over the left patella. Limited passive range of motion secondary to pain. 2+ DP and PT pulses and capillary refill <1 second. Negative anterior/posterior drawer test. Rosemarie's elicits pain. ) Neurological exam: Present: alert, oriented X3, CN II-XII intact Psychiatric exam: Present: normal affect, normal mood Skin exam: Present: warm, dry, intact, normal color. Absent: rash Course Vital Signs 12/18/22 12/18/22 15:06 17:01 Temperature 98.1 F 98.4 F Pulse Rate 77 73 Respiratory 18 16 Rate Blood Pressure 117/79 139/62 O2 Sat by Pulse 98 96 Oximetry Medical Decision Making - Medical Decision Making This is a 37-year-old female who presents to the emergency department for a left knee injury. Was pt. sent in by a medical professional or institution? @ -No Did you speak to anyone other than the patient for history? @ -No Did you review nursing and triage notes? @ -Yes, and I agree, it is accurate with regards to the patient's symptoms. Were old charts reviewed? @ -No Differential Diagnosis? @ -Differential Knee Pain/Injury: Fracture, dislocation, contusion, sprain, this is not meant to be an all- inclusive list. EKG interpreted by me (3pts min.)? @ -None X-rays interpreted by me (1pt min.)? @ -X-ray of the left knee obtained. My interpretation identifies no acute fractures or dislocations. CT interpreted by me (1pt min.)? @ -None U/S interpreted by me (1pt. min.)? @ -None What testing was considered but not performed? (CT, X-rays, U/S, labs)? Why? @ -None What meds were considered but not given? Why? @ -None Did you discuss the management of the patient with other professionals? @ -No Did you reconcile home meds? @ -No Was smoking cessation discussed for >3mins.? @ -No Was critical care preformed (if so, how long)? @ -No Were there social determinants of health that impacted care today? How? (Homelessness, low income, unemployed, alcoholism, drug addiction, transportation, low edu. Level, literacy, decrease access to med. care, intermediate, rehab)? @ -No Was there de-escalation of care discussed even if they declined? (Discuss DNR or withdrawal of care, Hospice)? @ -No What co-morbidities impacted this encounter? (DM, HTN, Smoking, COPD, CAD, Cancer, CVA, Hep., AIDS, mental health diagnosis, sleep apnea, morbid obesity)? @ -Musculoskeletal disorder Was patient admitted / discharged? @ -Discharged. X-ray of the left knee obtained revealing no evidence of any fractures or dislocations. Ibuprofen administered for pain relief. Patient became very belligerent with myself and the staff, stating that her knee was absolutely dislocated, as she was having difficulty moving it. The x-rays were reviewed by both myself, ED attending Dr. Ramires, and the radiologist. Neither of us saw any evidence of a dislocation on the x-ray. Patient also had no external evidence of a dislocation in terms of deformities or dimpling of the knee. There is also no evidence of vascular compromise. Patient was also shown the x- rays revealing no evidence of a dislocation. She continued to be very belligerent with myself and the nursing staff. Discussed that this can be related to internal derangement of the left knee, a meniscus, or ligamentous injury causing similar symptoms, however the patient did not believe that was the case. I did offer pain medications and a knee immobilizer. She declined pain medication other than ibuprofen. She was given a knee immobilizer and discharged home. Undiagnosed new problem with uncertain prognosis? @ -None Drug Therapy requiring intensive monitoring for toxicity (Heparin, Nitro, Insulin, Cardizem)? @ -None Were any procedures done? @ -None Diagnosis/symptom? @ -Left knee pain Acute, or Chronic, or Acute on Chronic? @ -Acute Uncomplicated (without systemic symptoms) or Complicated (systemic symptoms)? @ -Uncomplicated Side effects of treatment? @ -None Exacerbation, Progression, or Severe Exacerbation] @ -Not applicable Poses a threat to life or bodily function? @ -Yes, this is limiting her ability to ambulate. Return precautions reviewed in depth, the patient is instructed to return to the emergency department with any new, worsening, or concerning symptoms. Patient verbalized understanding. This case was discussed in detail with the attending ED physician, Dr. Ramires. Presentation, findings, and treatment plan discussed in detail as well. - Radiology Data Radiology results: report reviewed, image reviewed Disposition Clinical Impression: Left knee pain Disposition: HOME SELF-CARE Instructions (If sedation given, give patient instructions): Knee Pain (ED) Additional Instructions: Return to the emergency department with any new, worsening, or concerning symptoms. Follow up with your primary care provider in 1-2 days. Is patient prescribed a controlled substance at d/c from ED?: No Referrals: Kd Linn MD [Primary Care Provider] - 1-2 days
--- NOTE | 2022-12-18 16:01 | XR ---
EXAMINATION TYPE: XR knee complete LT DATE OF EXAM: 12/18/2022 CLINICAL HISTORY: Injury with pain TECHNIQUE: Three views of the left knee are obtained. COMPARISON: Prior left knee x-ray November 2014 FINDINGS: There is no acute fracture/dislocation evident in left knee. The tri-compartment joint sp aces remain within normal limits. The overlying soft tissue appears unremarkable. IMPRESSION: There is no acute fracture or dislocation in the left knee. No significant change from p rior.
[2022-12-18] MEDS ORDERED: ACET/COD 300 MG/30 MG STARTER PACK 6 TAB BTL PO STA (16:41)
[2022-12-18] MEDS ORDERED: IBUPROFEN 600 MG STARTER PACK 4 TAB BTL PO STA (16:41)
[2022-12-18 17:03] VITALS: BP 139/62; PULSE 73; RESP 16; TEMP 98.4
== END 2022-12-18 17:03 | disposition home or self-care (01) ==
LOC: EC 15:04
DX: M25.562 Pain in left knee (principal); F17.200 Nicotine dependence, unspecified, uncomplicated; F12.90 Cannabis use, unspecified, uncomplicated; Z88.8 Allergy status to other drugs, medicaments and biological substances
CPT/HCPCS: 99283

== ENCOUNTER → 2023-01-18 | Outpatient (CLI) | payer OTHER ==
--- NOTE | 2023-01-20 05:29 | MR ---
EXAMINATION TYPE: MR knee LT wo con DATE OF EXAM: 01/18/2023 COMPARISON: Left knee x-ray December 18, 2022 HISTORY: Left knee pain and swelling for 10 years after dislocation injury TECHNIQUE: Multiplanar, multisequence images of the knee is performed without IV contrast. FINDINGS: MEDIAL MENISCUS: Anterior and posterior horns are intact without tear. LATERAL MENISCUS: Anterior and posterior horns are intact without tear. CRUCIATE LIGAMENTS: The posterior cruciate ligament is intact and unremarkable. Complete tear of the anterior cruciate ligament is noted. COLLATERAL LIGAMENTS: The medial collateral ligament and lateral collateral ligament complex are inta ct and unremarkable. EXTENSOR MECHANISM: Visualized quadriceps and patellar tendons are intact. EFFUSION: Large size suprapatellar joint effusion. POPLITEAL CYST: No popliteal/steel cyst. TRICOMPARTMENT SPACES: Tricompartment joint spaces are preserved. No significant spurring is seen. CARTILAGE: Tricompartmental articular cartilage is maintained. BONE MARROW SIGNAL: No focal abnormal marrow signal is appreciated. OTHER: No additional significant abnormality is appreciated. IMPRESSION: 1. Complete ACL tear. 2. Large suprapatellar joint effusion.
== END | disposition home or self-care (01) ==
LOC: RADMRIMAIN 20:45
PROVIDERS: ATTEND Family Medicine
DX: S83.512A Sprain of anterior cruciate ligament of left knee, initial encounter (principal); S83.105A Unspecified dislocation of left knee, initial encounter; M25.462 Effusion, left knee

== ENCOUNTER → 2023-01-29 | Outpatient (CLI) | payer OTHER ==
[2023-01-29 16:36] LABS: BUN/Creat Ratio 15.44 Ratio (12.00-20.00); Blood Urea Nitrogen 13.9 mg/dL (9.0-27.0); Calcium 9.5 mg/dL (8.7-10.3); Carbon Dioxide 25.1 mmol/L (21.6-31.8); Chloride 104 mmol/L (96-109); Glucose 81 mg/dL (70-110); Sodium 138 mmol/L (135-145)
[2023-01-29 17:34] LABS: Basophils # (A) 0.07 X 10*3/uL (0.00-0.10); Basophils % (A) 0.8 %; Eosinophils # (A) 0 X 10*3/uL (0.04-0.35); Eosinophils % (A) 0 %; HCT 40.7 % (37.2-46.3); HGB 13.5 d/dL (12.0-15.0); Lymphocytes # (A) 2.77 X 10*3/uL (0.90-5.00); Lymphocytes % (A) 33.3 %; MCH 32.4 pg (27.0-32.0); MCHC 33.2 d/dL (32.0-37.0); MCV 97.6 FL (80.0-97.0); Mean Platelet Volume 11.8 FL (9.5-12.2); Monocytes # (A) 0.58 X 10*3/uL (0.20-1.00); NRBC Per 100 WBC 0 X 10*3/uL (0.00-0.01); Neutrophils # (A) 4.85 X 10*3/uL (1.80-7.70); Neutrophils % (A) 58.4 %; Platelet Count 187 X 10*3/uL (140-440); RBC 4.17 X 10*6/uL (4.10-5.20); RDW 11.9 % (11.5-14.5); WBC 8.31 X 10*3/uL (4.50-10.00)
== END | disposition home or self-care (01) ==
LOC: LABPAT 10:35
PROVIDERS: ATTEND Orthopaedic Surgery
DX: Z01.812 Encounter for preprocedural laboratory examination (principal); M23.92 Unspecified internal derangement of left knee
CPT/HCPCS: 80048; 85025

== ENCOUNTER → 2023-07-23 | Outpatient (CLI) | payer OTHER ==
--- NOTE | 2023-07-23 14:38 | P.GSHP ---
History of Present Illness H&P Date: 07/23/23 Chief Complaint: breast pain Karen is a 37 year old whtie female seen in consultation for Dr. Linn regarding bilateral breast pain. The pain is the greatest in right breast and has bilateral nipple itching. She has bilateral nipple piercings. The pain is aching when she sneezes or coughs she feels pain behind the breast radiating to her back. The patient does not feel any new lumps masses or nodules of concern in either breast. There is no spontaneous nipple discharge. The patient has a history of cervical cancer Bilateral breast ultrasound was performed on : Right breast: 2 o'clock position 4 x 4 x 2 mm oval hypoechoic area 10:00 area 4 x 4 mm similar lesion Left breast: 7:00 lesion which is 5.5-2 mm possible cyst with debris's Other solid or cystic lesions identified impression most likely benign bilaterally at 3 repeat breast ultrasound in 3 months Caffeine: 7 cups/day nicotine: 1/4 PPD since a teenager chocolate: several times a month Family History: maternal grandmother: ovarian cancer maternal great aunt : breast cancer maternal uncle: bone cancer Hormonal History: menarche: 12 1tubal preA1; Breast fed: yes, age at first : 16 partial hysterectomy Social History: nicotine: 1.4 PPD alcohol: Once or twice a year Drugs: Marijuana daily - Constitutional Constitutional: Denies chills, Denies fever - EENT Eyes: denies blurred vision, denies pain Ears: deny: decreased hearing, tinnitus Ears, nose, mouth and throat: Denies headache, Denies sore throat - Breasts Breasts: bilateral: as per HPI - Cardiovascular Comment: COPD Cardiovascular: Reports chest pain, Reports shortness of breath - Respiratory Respiratory: Reports cough - Gastrointestinal Gastrointestinal: Denies abdominal pain, Denies diarrhea, Denies nausea, Denies vomiting - Genitourinary (Female) Genitourinary: Denies dysuria, Denies hematuria - Menstruation Menstruation: Reports post hysterectomy - Musculoskeletal Musculoskeletal: Reports myalgias - Integumentary Integumentary: Reports pruritus, Denies rash - Neurological Neurological: Reports weakness, Denies numbness - Psychiatric Psychiatric: Reports anxiety, Reports depression - Endocrine Endocrine: Reports fatigue, Reports weight change - Hematologic/Lymphatic Comment: none - Allergic/Immunologic Allergic/Immunologic: Reports as per HPI Past Medical History Past Medical History: Cancer, Musculoskeletal Disorder, Renal Disease, Skin Disorder Additional Past Medical History / Comment(s): cervical/ kidney biopsy REVEALED LUPUS. CERVICAL CA 2008. DISLOCATED LT KNEE X3. MINOR PSORIASIS OCC. History of Any Multi-Drug Resistant Organisms: None Reported Past Surgical History: Hysterectomy, Orthopedic Surgery, Tubal Ligation Additional Past Surgical History / Comment(s): FINGER REATTACHED RT HAND CHILD. D&C, due to needing cancer surgery; HAD CONE BIOPSY. COLONOSCOPY, EGD. Past Anesthesia/Blood Transfusion Reactions: No Reported Reaction Past Psychological History: Anxiety, Depression Additional Psychological History / Comment(s): UNABLE TO TOLERATE RX TX Smoking Status: Current every day smoker Past Alcohol Use History: Rare Additional Past Alcohol Use History / Comment(s): SMOKING ON/OFF SINCE AGE 12, 1/2-3/4 PPD, NOW DOWN TO 2-3 CIGARETTES DAILY. Past Drug Use History: Marijuana Additional Drug Use History / Comment(s): USES EVERY OTHER DAY-INSTRUCTED TO REFRAIN FROM USE FOR AT LEAST 24 HOURS PRIOR TO PROCEDURE - Past Family History Mother Family Medical History: No Reported History Medications and Allergies Home Medications Medication Instructions Recorded Confirmed Type Ibuprofen [Motrin] 400 mg PO Q6HR PRN 07/23/23 07/23/23 History Allergies Allergy/AdvReac Type Severity Reaction Status Date / Time bee venom protein (honey bee) Allergy Anaphylaxis Verified 07/23/23 14:17 bupropion [From Wellbutrin] AdvReac Hallucinati Verified 07/23/23 14:17 ons escitalopram [From Lexapro] AdvReac Hallucinati Verified 07/23/23 14:17 ons paroxetine [From Paxil] AdvReac Hallucinati Verified 07/23/23 14:17 ons sertraline [From Zoloft] AdvReac Hallucinati Verified 07/23/23 14:17 ons Surgical - Exam Vital Signs Temp Pulse Resp BP Pulse Ox 98.3 F 71 16 120/79 98 07/23/23 14:17 07/23/23 14:17 07/23/23 14:17 07/23/23 14:17 07/23/23 14:17 - General moderate distress - Eyes normal ocular movement - Neck trachea midline - Respiratory normal respiratory effort, clear to auscultation - Cardiovascular Heart Sounds: normal: S1, S2 - Abdomen Abdomen: soft, non tender, no guarding, no rigid, no rebound - Integumentary normal turgor - Neurologic no disoriented, no combative - Musculoskeletal normal gait - Psychiatric oriented to time, oriented to person, oriented to place, speech is normal, memory intact Breast Exam: BRA: 34C Inspection: Bilateral grade 1 ptosis, bilateral nipple piercing Palpation: Right breast: Fibrocystic breast changes, no discrete dominant masses or nodules of concern Right axilla: No adenopathy of concern Left breast: Multi-positional exam fibrocystic changes no dominant masses or nodules of concern Left axilla: No adenopathy of concern Results Ultrasound results reviewed from [id number] Assessment and Plan Assessment: Impression: Bilateral mastodynia greater on the right than on the left Ultrasound probable bilateral breast cysts Nicotine dependence Caffeine dependence Plan: Lifestyle modification Blood given of breast pain Bilateral ultrasound in 6 months with examination at that time At this time there is nothing which would warrant interventional biopsy and clinical examination or radiographically CC: Dr. Linn
[2023-07-23 14:40] VITALS: BP 120/79; PULSE 71; RESP 16; TEMP 98.3
== END ==
LOC: WWCWWP 14:02
PROVIDERS: ATTEND Surgery
DX: C80.1 Malignant (primary) neoplasm, unspecified (principal); N18.9 Chronic kidney disease, unspecified; L98.9 Disorder of the skin and subcutaneous tissue, unspecified; M62.9 Disorder of muscle, unspecified; F17.210 Nicotine dependence, cigarettes, uncomplicated; F12.90 Cannabis use, unspecified, uncomplicated; F15.229 Other stimulant dependence with intoxication, unspecified; Z91.030 Bee allergy status; Z88.8 Allergy status to other drugs, medicaments and biological substances; Z88.2 Allergy status to sulfonamides; Z85.41 Personal history of malignant neoplasm of cervix uteri; Z88.6 Allergy status to analgesic agent; Z88.5 Allergy status to narcotic agent

== ENCOUNTER → 2023-10-06 | Outpatient (CLI) | payer OTHER ==
[2023-10-07 04:46] LABS: Basophils # (A) 0.08 X 10*3/uL (0.00-0.10); Eosinophils # (A) 1.21 X 10*3/uL (0.04-0.35); Eosinophils % (A) 14.9 %; HCT 40.9 % (37.2-46.3); HGB 13.1 g/dL (12.0-15.0); Lymphocytes % (A) 33.3 %; MCH 32.1 pg (27.0-32.0); MCV 100.2 FL (80.0-97.0); Mean Platelet Volume 12.3 FL (9.5-12.2); Monocytes # (A) 0.59 X 10*3/uL (0.20-1.00); Monocytes % (A) 7.3 %; NRBC Per 100 WBC 0 X 10*3/uL (0.00-0.01); Neutrophils # (A) 3.51 X 10*3/uL (1.80-7.70); Neutrophils % (A) 43.3 %; Platelet Count 157 X 10*3/uL (140-440); RBC 4.08 X 10*6/uL (4.10-5.20); RDW 11.8 % (11.5-14.5); WBC 8.11 X 10*3/uL (4.50-10.00)
== END | disposition home or self-care (01) ==
LOC: LABPAT 14:37
PROVIDERS: ATTEND Orthopaedic Surgery Hand Surgery
DX: G56.01 Carpal tunnel syndrome, right upper limb (principal)
CPT/HCPCS: 85025

== ENCOUNTER 2023-10-13 11:19 | Day surgery (SDC) | payer OTHER ==
[2023-10-07 15:13] VITALS: BMI 21.8
--- NOTE | 2023-10-12 09:33 | P.HPOR ---
History of Present Illness H&P Date: 10/12/23 Subjective: This is a 38 year old female that presents today for follow up evaluation regarding a several year history of progressively worsening right and left hand paresthesias in the thumb, index, middle and ring fingers. The patient has tried night time bracing for 2 years with only a small amount of relief. She any inciting event or neck pain. Physical Examination: RUE: AIN/PIN/Radial/Ulnar/Median motor intact. Radial/Ulnar/Median SILT. 2+/4 Radial/Ulnar pulses palpated. 5/5 APB, 5/5 FDI. Negative Finkelsteins, negative CMC grind, positive Durkan's compression. LUE: AIN/PIN/Radial/Ulnar/Median motor intact. Radial/Ulnar/Median SILT. 2+/4 Radial/Ulnar pulses palpated. 5/5 APB, 5/5 FDI. Negative Finkelsteins, negative CMC grind, positive Durkan's compression. EMG/NCV: EMG/NCV performed in 2021 demonstrates mild bilateral carpal tunnel syndrome. Impression: 1.) Right carpal tunnel syndrome 2.) Left carpal tunnel syndrome Plan: Diagnosis and treatment options were discussed with the patient. The patient has failed conservative treatment and would like to pursue a right endoscopic vs open carpal tunnel release followed by a left endoscopic vs open carpal tunnel release 2 weeks later. Risks and benefits of surgery including bleeding, infection, damage to surrounding tissue, need for further surgery, possible need to convert to open procedure, residual numbness were discussed and the patient wished to go forward with surgery. I anticipate 6 weeks off of work total at her [employer] job. CC: Angela Hunter DO Orthopedic Hand/Upper Extremity Surgeon Past Medical History Past Medical History: Cancer, Musculoskeletal Disorder, Renal Disease, Skin Disorder Additional Past Medical History / Comment(s): cervical/ kidney biopsy REVEALED LUPUS. CERVICAL CA 2008. DISLOCATED LT KNEE X3. MINOR PSORIASIS OCC. History of Any Multi-Drug Resistant Organisms: None Reported Past Surgical History: Hysterectomy, Orthopedic Surgery, Tubal Ligation Additional Past Surgical History / Comment(s): FINGER REATTACHED RT HAND CHILD. D&C, due to needing cancer surgery; HAD CONE BIOPSY. COLONOSCOPY, EGD. Past Anesthesia/Blood Transfusion Reactions: No Reported Reaction Smoking Status: Current every day smoker - Past Family History Mother Family Medical History: No Reported History Medications and Allergies Home Medications Medication Instructions Recorded Confirmed Type Ibuprofen [Motrin] 400 mg PO Q6HR PRN 07/23/23 10/07/23 History Allergies Allergy/AdvReac Type Severity Reaction Status Date / Time bee venom protein (honey bee) Allergy Anaphylaxis Verified 10/07/23 14:17 bupropion [From Wellbutrin] AdvReac Hallucinati Verified 10/07/23 14:17 ons escitalopram [From Lexapro] AdvReac Hallucinati Verified 10/07/23 14:17 ons paroxetine [From Paxil] AdvReac Hallucinati Verified 10/07/23 14:17 ons sertraline [From Zoloft] AdvReac Hallucinati Verified 10/07/23 14:17 ons Physical Examination Osteopathic Statement: *. No significant issues noted on an osteopathic structural exam other than those noted in the History and Physical/Consult.
[~2023-10-13 11:19] MED LIST changes: -DEXAMETHASONE SOD PHOSPHATE 10 MG/ML 1 ML VIAL IV ONE; +LIDOCAINE 1% (10MG/ML) FOR IV START INTRADERMA PRN; -MIDAZOLAM 2 MG/2 ML VIAL IV PRN; -ONDANSETRON 4 MG/2 ML VIAL IVP ONE; +Pre Op ABX Message 1 EACH MISC MISCELLANE ONE; -SCOPOLAMINE 1.5MG/72HR PATCH TRANSDERM ONE; -ceFAZolin IN SWFI 2 GM/20 ML SYRINGE IVP ONE
[2023-10-13] MEDS: LACTATED RINGERS 1,000 ML IV SCH (11:39)
[2023-10-13 11:44] VITALS: TEMP 97.7
[2023-10-13] MEDS ORDERED: PROPOFOL 10 MG/ML 20 ML VIAL IV ONE (12:24)
[2023-10-13] MEDS ORDERED: MIDAZOLAM 2 MG/2 ML VIAL ONE (12:24)
[2023-10-13] MEDS ORDERED: fentaNYL (PF) 50 MCG/ML 2 ML AMP ONE (12:24)
[2023-10-13] MEDS: LIDOCAINE 2% INJ 20 MG/ML SQ ONE ×2 (12:25→12:33)
[2023-10-13] MEDS: BUPIVACAINE (PF) 0.5% 30 ML VIAL SQ ONE ×2 (12:25→12:33)
[2023-10-13 13:25] VITALS: BP 108/74; PULSE 60; RESP 16
--- NOTE | 2023-10-18 14:23 | P.OP ---
Date of Procedure: 10/13/23 Preoperative Diagnosis: Right carpal tunnel syndrome Postoperative Diagnosis: Right carpal tunnel syndrome Procedure(s) Performed: Right endoscopic carpal tunnel release Anesthesia: MAC Surgeon: Dionicio Hunter Administrative Program Specialist #1: Grady Bernstein Estimated Blood Loss (ml): 0 Pathology: none sent Condition: stable Disposition: PACU Description of Procedure: This is a 38 year old female who presents today for a right endoscopic carpal tunnel release after having failed conservative treatment in the past. Risks and benefits of surgery were discussed with the patient including bleeding, damage to surrounding tissue, infection, need to convert to open procedure, need for further surgery as well as risks of anesthesia including pulmonary embolism and even and the patient wished to proceed with surgical intervention. The patients was seen in the pre-operative area by myself. Consent and H&P were completed and updated. The correct extremity was marked in the pre-operative area by myself and all other questions were answered. Operative Narrative: The patient was brought to the operating room by the department of anesthesia. They remained on the portable stretcher and a rolling hand table was brought to the side of the operative extremity. Pre-operative time out was performed indicating the correct patient, procedure and laterality. All in the room agreed. The patient was then drifted off to sleep by the department of an esthesia. MAC anesthesia was utilized and a 50:50 mixture of 1% Lidocaine and 0.5% bupivacaine was injected into the subcutaneous tissues of the palmar skin, 8ccs total. A nonsterile tourniquet was then applied to the operative extremity and the right upper extremity was then prepped and draped in normal sterile fashion. The operative extremity was the exsanguinated with an esmarch bandage and the tourniquet was inflated to 250mmHg. 15 blade scalpel was utilized to make a transverse incision on the palmar skin just ulnar to the palmaris longus tendon at the level of the distal wrist crease. Ragnell retractor was then placed radially and blunt dissection was performed to reveal the distal forearm fascia. This was lifted with fine Felton pick ups and Littler tenotomy scissors were then used to open the forearm fascia transversely and a double skin hook was then placed. Hamate finder was placed into the carpal tunnel and then sequential sized dilators were inserted followed by the synovial elevator to separate the flexor tenosynovium from the undersurface of the transverse carpal ligament and a washboard texture was felt. The MicroAire endoscopic carpal tunnel release system gun was the then inserted into the carpal tunnel hugging the deep portion of the transverse carpal ligament in line with the base of the ring finger. Transverse fibers of the ligament were directly visualized. Pressure was applied on the palm to reveal the distal extent of the transverse carpal ligament. The blade was then deployed and the distal half of the transverse carpal ligament was released. The scope was then brought distal again and remaining transverse fibers were incised with the blade. The proximal half of the transverse carpal ligament was then divided and again the scope was advanced distal and remaining transverse fibers were incised with the blade. The radial and ulnar leaflets were directly visualized and mobile consistent with complete release. Tenotomy scissors were then ut ilized to release the remaining distal forearm fascia under direct visualization taking care to preserve the palmar cutaneous branch of the median nerve. Skin closure was performed with interrupted 4-0 Monocryl suture followed by steri strips. Sterile dressing was applied consisting 4x4s, Webril, and an brett bandage. Tourniquet was let down and the hand immediately was well perfused. The patient was then woken by the department of anesthesia and transferred to PACU in stable condition. Grady ALVA was present for the case in its entirety and assisted in major portions of the case and protection of vital neurovascular structures. Dionicio Hunter D.O. Orthopedic Hand/Upper Extremity Surgeon
== END 2023-10-13 13:40 | disposition home or self-care (01) ==
LOC: OR 11:19
PROVIDERS: ATTEND Orthopaedic Surgery Hand Surgery
DX: G56.03 Carpal tunnel syndrome, bilateral upper limbs (principal); J44.9 Chronic obstructive pulmonary disease, unspecified; F41.9 Anxiety disorder, unspecified; F32.A Depression, unspecified; F17.210 Nicotine dependence, cigarettes, uncomplicated; Z85.41 Personal history of malignant neoplasm of cervix uteri; Z88.8 Allergy status to other drugs, medicaments and biological substances; Z91.030 Bee allergy status; Z79.1 Long term (current) use of non-steroidal anti-inflammatories (NSAID); Z88.6 Allergy status to analgesic agent
CPT/HCPCS: 29848; J2001; J2250; J3010; J2704; J0665

== ENCOUNTER → 2023-10-27 | Day surgery (SDC) | payer OTHER ==
--- NOTE | 2023-10-26 12:50 | P.HPOR ---
History of Present Illness H&P Date: 10/26/23 Subjective: This is a 38 year old female that presents today for follow up evaluation regarding a several year history of progressively worsening right and left hand paresthesias in the thumb, index, middle and ring fingers. The patient has tried night time bracing for 2 years with only a small amount of relief. She any inciting event or neck pain. Physical Examination: RUE: AIN/PIN/Radial/Ulnar/Median motor intact. Radial/Ulnar/Median SILT. 2+/4 Radial/Ulnar pulses palpated. 5/5 APB, 5/5 FDI. Negative Finkelsteins, negative CMC grind, positive Durkan's compression. LUE: AIN/PIN/Radial/Ulnar/Median motor intact. Radial/Ulnar/Median SILT. 2+/4 Radial/Ulnar pulses palpated. 5/5 APB, 5/5 FDI. Negative Finkelsteins, negative CMC grind, positive Durkan's compression. EMG/NCV: EMG/NCV performed in 2021 demonstrates mild bilateral carpal tunnel syndrome. Impression: 1.) Right carpal tunnel syndrome 2.) Left carpal tunnel syndrome Plan: Diagnosis and treatment options were discussed with the patient. The patient has failed conservative treatment and would like to pursue a right endoscopic vs open carpal tunnel release followed by a left endoscopic vs open carpal tunnel release 2 weeks later. Risks and benefits of surgery including bleeding, infection, damage to surrounding tissue, need for further surgery, possible need to convert to open procedure, residual numbness were discussed and the patient wished to go forward with surgery. I anticipate 6 weeks off of work total at her [employer] job. CC: Angela Hunter DO Orthopedic Hand/Upper Extremity Surgeon Past Medical History Past Medical History: Cancer, COPD, Musculoskeletal Disorder, Renal Disease, Skin Disorder Additional Past Medical History / Comment(s): cervical/ kidney biopsy REVEALED LUPUS. CERVICAL CA 2008. DISLOCATED LT KNEE X3. MINOR PSORIASIS OCC. History of Any Multi-Drug Resistant Organisms: None Reported Past Surgical History: Hysterectomy, Orthopedic Surgery, Tubal Ligation Additional Past Surgical History / Comment(s): FINGER REATTACHED RT HAND CHILD. D&C, due to needing cancer surgery; HAD CONE BIOPSY. COLONOSCOPY, EGD. Rt CTR Past Anesthesia/Blood Transfusion Reactions: No Reported Reaction Smoking Status: Current every day smoker - Past Family History Mother Family Medical History: No Reported History Medications and Allergies Home Medications Medication Instructions Recorded Confirmed Type Ibuprofen [Motrin] 800 mg PO Q8H 10/22/23 10/22/23 History Allergies Allergy/AdvReac Type Severity Reaction Status Date / Time bee venom protein (honey bee) Allergy Anaphylaxis Verified 10/22/23 10:32 bupropion [From Wellbutrin] AdvReac Hallucinati Verified 10/22/23 10:32 ons escitalopram [From Lexapro] AdvReac Hallucinati Verified 10/22/23 10:32 ons paroxetine [From Paxil] AdvReac Hallucinati Verified 10/22/23 10:32 ons sertraline [From Zoloft] AdvReac Hallucinati Verified 10/22/23 10:32 ons Physical Examination Osteopathic Statement: *. No significant issues noted on an osteopathic structural exam other than those noted in the History and Physical/Consult.
[~2023-10-27] MED LIST changes: -HYDROmorphone 0.5 MG/0.5 ML SYRINGE IVP PRN; -LIDOCAINE 1% (10MG/ML) FOR IV START INTRADERMA PRN; +MIDAZOLAM 2 MG/2 ML VIAL ONE; +ONDANSETRON 4 MG/2 ML VIAL ONE; +PROPOFOL 10 MG/ML 20 ML VIAL IV ONE; +fentaNYL (PF) 50 MCG/ML 2 ML AMP ONE
[2023-10-27] MEDS: LACTATED RINGERS 1,000 ML IV ONE (07:44)
[2023-10-27] MEDS: LIDOCAINE 1% (10MG/ML) FOR IV START SQ ONE (07:44)
[2023-10-27] MEDS: DEXAMETHASONE SOD PHOSPHATE 4 MG/ML 1 ML VIAL IVP ONE (07:47)
[2023-10-27] MEDS: ONDANSETRON 4 MG/2 ML VIAL IVP ONE (07:47)
[2023-10-27 07:48] VITALS: TEMP 97.1
[2023-10-27] MEDS: BUPIVACAINE (PF) 0.5% 30 ML VIAL SQ ONE ×2 (07:57→08:06)
[2023-10-27] MEDS: LIDOCAINE 2% INJ 20 MG/ML SQ ONE ×2 (07:58→08:06)
--- NOTE | 2023-10-27 08:20 | P.OP ---
Date of Procedure: 10/27/23 Preoperative Diagnosis: Left carpal tunnel syndrome Postoperative Diagnosis: Left carpal tunnel syndrome Procedure(s) Performed: Left endoscopic carpal tunnel release Anesthesia: MAC Surgeon: Dionicio Hunter Estimated Blood Loss (ml): 0 Pathology: none sent Condition: stable Disposition: PACU Description of Procedure: This is a 38 year old female who presents today for a left endoscopic carpal tunnel release after having failed conservative treatment in the past. Risks and benefits of surgery were discussed with the patient including bleeding, damage to surrounding tissue, infection, need to convert to open procedure, need for further surgery as well as risks of anesthesia including pulmonary embolism and even and the patient wished to proceed with surgical intervention. The patients was seen in the pre-operative area by myself. Consent and H&P were completed and updated. The correct extremity was marked in the pre-operative area by myself and all other questions were answered. Operative Narrative: The patient was brought to the operating room by the department of anesthesia. They remained on the portable stretcher and a rolling hand table was brought to the side of the operative extremity. Pre-operative time out was performed indicating the correct patient, procedure and laterality. All in the room agreed. The patient was then drifted off to sleep by the department of anesthesia. MAC anesthesia was utilized and a 50:50 mixture of 1% Lidocaine and 0.5% bupivacaine was injected into the subcutaneous tissues of the palmar skin, 8ccs total. A nonsterile tourniquet was then applied to the operative extremity and the left upper extremity was then prepped and draped in normal sterile fashion. The operative extremity was the exsanguinated with an esmarch bandage and the tourniquet was inflated to 250mmHg. 15 blade scalpel was utilized to make a transverse incision on the palmar skin just ulnar to the palmaris longus tendon at the level of the distal wrist crease. Ragnell retractor was then placed radially and blunt dissection was performed to reveal the distal forearm fascia. This was lifted with fine Felton pick ups and Littler tenotomy scissors were then used to open the forearm fascia transversely and a double skin hook was then placed. Hamate finder was placed into the carpal tunnel and then sequential sized dilators were inserted followed by the synovial elevator to separate the flexor tenosynovium from the undersurface of the transverse carpal ligament and a washboard texture was felt. The MicroAire endoscopic carpal tunnel release system gun was the then inserted into the carpal tunnel hugging the deep portion of the transverse carpal ligament in line with the base of the ring finger. Transverse fibers of the ligament were directly visualized. Pressure was applied on the palm to reveal the distal extent of the transverse carpal ligament. The blade was then deployed and the distal half of the transverse carpal ligament was released. The scope was then brought distal again and remaining transverse fibers were incised with the blade. The proximal half of the transverse carpal ligament was then divided and again the scope was advanced distal and remaining transverse fibers were incised with the blade. The radial and ulnar leaflets were directly visualized and mobile consistent with complete release. Tenotomy scissors were then utilized to release the remaining distal forearm fascia under direct visualization taking care to preserve the palmar cutaneous branch of the median nerve. Skin closure was performed with interrupted 4-0 Monocryl suture followed by steri strips. Sterile dressing was applied consisting 4x4s, Webril, and an brett bandage. Tourniquet was let down and the hand immediately was well perfused. The patient was then woken by the department of anesthesia and transferred to PACU in stable condition. Dionicio Hunter D.O. Orthopedic Hand/Upper Extremity Surgeon
[2023-10-27 09:41] VITALS: BP 105/62; PULSE 57; RESP 14
== END | disposition home or self-care (01) ==
LOC: OR 07:08
PROVIDERS: ATTEND Orthopaedic Surgery Hand Surgery
DX: G56.03 Carpal tunnel syndrome, bilateral upper limbs (principal); J44.9 Chronic obstructive pulmonary disease, unspecified; Z85.41 Personal history of malignant neoplasm of cervix uteri; Z90.710 Acquired absence of both cervix and uterus; Z79.51 Long term (current) use of inhaled steroids; Z98.51 Tubal ligation status; Z91.030 Bee allergy status; Z88.8 Allergy status to other drugs, medicaments and biological substances; Z79.899 Other long term (current) drug therapy; F17.210 Nicotine dependence, cigarettes, uncomplicated; F41.9 Anxiety disorder, unspecified; F32.A Depression, unspecified; Z98.890 Other specified postprocedural states
CPT/HCPCS: 29848; J2001; J2250; J1100; J2405; J3010; J2704; J0665

== ENCOUNTER → 2024-07-14 | Outpatient (CLI) | payer OTHER ==
--- NOTE | 2024-07-14 14:02 | USB ---
Reason for Exam: Follow-up at short interval from prior study. Risk Values: Rocío 5 year model risk: 0.3%. NCI Lifetime model risk: 6.8%. Technique: Method: Targeted. Prior Study Comparison: 02/13/2011 Bilateral Diagnostic Ultrasound, [facility]. Findings: The axilla of both breasts and the retroareolar of both breasts were scanned. Right breast: At the 2:00 position 3 cm from the nipple there is a hypoechoic rounded area measuring 0.3 x 0.2 x 0.3 cm. Some left duct ectasia is present. Bilateral axillary lymph nodes without thickening cortex are present. No abnormality in the right breast 10:00 position 4 cm nipple. Overall Assessment: Benign, BI-RAD 2 Management: Screening Mammogram of both breasts at age 40. A clinical breast exam by your physician is recommended on an annual basis and results should be correlated with mammographic findings. This exam should not preclude additional follow-up of suspicious palpable abnormalities. Results were given to the patient verbally at the time of exam. [facility], , 07/14/2024 1:56 PM. Electronically signed and approved by: Trell Danielle D.O. Radiologis
== END | disposition home or self-care (01) ==
LOC: RADUSWWP 13:09
PROVIDERS: ATTEND Family Medicine
DX: N63.10 Unspecified lump in the right breast, unspecified quadrant (principal)